=== PATIENT | female | born 1935 | race Caucasian/White ===

== ENCOUNTER 2018-12-26 18:37 | Emergency (ER) | payer MEDICARE, BC ==
[~2018-12-26] VITALS: Ht 149.9 cm; Wt 41.3 kg
--- NOTE | 2018-12-26 20:06 | NUR ---
pt states she takes a baby aspirin daily, has slight cervical tenderness with palpation. pt denies loc, but daughter states pt was "just lying there", and "didnt' really remember what happened".
--- NOTE | 2018-12-26 20:08 | NUR ---
call to charge coordinator to possibly change bed assignment for pt
[2018-12-26] MEDS ORDERED: TETanus/Pertussis (Acell)/Diphther VAC/PF (Tdap-Adult) 0.5ml syringe IM ONE (20:45)
[2018-12-26 22:21] VITALS: BP 173/78
== END 2018-12-26 22:23 | disposition home or self-care (01) ==
LOC: ER 18:38
DX: S00.01XA Abrasion of scalp, initial encounter (principal); M54.2 Cervicalgia; I10 Essential (primary) hypertension; Z98.890 Other specified postprocedural states; Z60.2 Problems related to living alone; W54.1XXA Struck by dog, initial encounter; Y93.89 Activity, other specified; Y92.89 Other specified places as the place of occurrence of the external cause; Y99.8 Other external cause status
CPT/HCPCS: 70450; 72125; 90471; 90715; 99284

== ENCOUNTER 2020-06-17 10:41 | Day surgery (SDC) | payer MEDICARE, BC ==
[~2020-06-17] VITALS: Ht 149.9 cm; Wt 55.0 kg
[2020-06-17 09:40] VITALS: BP 140/60
[~2020-06-17 10:41] MED LIST: ACET-890 PO; ALBU6.7H9 INH; AMIT25TA10 PO; AMLO2.5T2 PO; ASPI-1265 PO; ATOR40TA71 PO; BISA10SU62 RC; CARI350T27 PO; CHOL100046 PO; CYCL5TAB PO; FERR-119 PO; GLUC-95 PO; HYDR-3972 PO; LACT1CAP57 PO; LEVO500T89 PO; LIDOcaine Viscous 15ml cup ONE; MAGN400O6 PO; METO-384 PO; METR500T PO; MIDAZolam 5mg/5ml vial ONE; MULT-215 PO; OLME1TAB21 PO; OMEG1CAP2 PO; OMEP20CA15 PO; PREG50CA PO; fentaNYL/PF 50MCG/1 ML 2ML syringe ONE
[2020-06-17 10:45] VITALS: BP 129/59
[2020-06-17 11:49] VITALS: BP 128/63
[2020-06-17 11:59] VITALS: BP 119/65
[2020-06-17 12:09] VITALS: BP 118/57
[2020-06-17 12:19] VITALS: BP 122/74
== END 2020-06-17 12:35 ==
LOC: GI LAB 10:41
PROVIDERS: ATTEND Internal Medicine Gastroenterology
DX: R13.10 Dysphagia, unspecified (principal); K22.5 Diverticulum of esophagus, acquired; K44.9 Diaphragmatic hernia without obstruction or gangrene; K31.7 Polyp of stomach and duodenum; K29.50 Unspecified chronic gastritis without bleeding; I10 Essential (primary) hypertension; Z79.82 Long term (current) use of aspirin; Z79.899 Other long term (current) drug therapy
CPT/HCPCS: 43239; 43251; C1773; G0500; J2250; J3010; J7040; 99152; A4620